=== PATIENT | male | born 1965 | race Caucasian/White ===

== ENCOUNTER 2023-12-02 14:18 | Emergency (ER) | payer OTHER, SELFPAY ==
--- NOTE | ~2023-12-02 | CT_ITS ---
EXAMINATION: CT CERVICAL SPINE WITHOUT CONTRAST CLINICAL INFORMATION: Fall. Pain. Dizziness. COMPARISON: None available. TECHNIQUE: Multidetector helical imaging of the cervical spine was obtained without intravenous contrast. Multiple axial reformats and coronal/sagittal reconstructions were created the technologist workstation for review. This CT examination was performed using dose optimization techniques as appropriate, variously including the following: *Automated exposure control. *Adjustment of mA and/or kV according to patient size (this includes techniques or standardized protocols for targeted exams where dose is matched to indication/reason for exam; i.e. extremities or head). *Use of iterative reconstruction technique. DLP: 611 mGy-cm FINDINGS: The atlantooccipital and atlantoaxial articulations remain well aligned. Straightening of the normal cervical lordosis. Otherwise, there is anatomic alignment of the vertebral bodies and posterior elements. No evidence of acute fracture or subluxation. The vertebral body heights are maintained. Moderate degenerative disc disease from C4-C7. Mild degenerative disc disease at all additional levels. Congenitally shortened pedicles throughout the cervical spine. There is no prevertebral soft tissue swelling. The thyroid gland and remaining cervical soft tissues are within normal limits. The lung apices demonstrate no abnormalities. SPINAL LEVELS: C2-C3: Normal annular contour. There is no uncovertebral joint arthropathy. There is mild bilateral facet joint arthropathy. There is no neural foraminal stenosis. There is no demonstrated spinal canal stenosis. C3-C4: Moderate disc-osteophyte complex. There is moderate left and mild right uncovertebral joint arthropathy. There is mild bilateral facet joint arthropathy. There is moderate left and mild right neural foraminal stenosis. There appears to mild spinal canal stenosis. C4-C5: Moderate disc-osteophyte complex. There is moderate bilateral uncovertebral joint arthropathy. There is mild bilateral facet joint arthropathy. There is moderate left and mild right neural foraminal stenosis. There appears to moderate to severe spinal canal stenosis. C5-C6: Moderate disc-osteophyte complex. There is severe right and moderate left uncovertebral joint arthropathy. There is moderate right and mild left facet joint arthropathy. There is severe right and moderate left neural foraminal stenosis. There is there appears to moderate spinal canal stenosis. C6-C7: Moderate to severe disc-osteophyte complex. There is severe bilateral uncovertebral joint arthropathy. There is severe right and moderate left facet joint arthropathy. There is severe bilateral neural foraminal stenosis. There appears to be moderate to severe spinal canal stenosis. C7-T1: Mild disc-osteophyte complex. There is mild right and no left uncovertebral joint arthropathy. There is moderate left and mild right facet joint arthropathy. There is mild bilateral neural foraminal stenosis. There is no demonstrated spinal canal stenosis. CT/CT cervical spine wo IV con IMPRESSION: 1. No evidence of acute fracture or traumatic subluxation of the cervical spine. 2. Moderate multilevel degenerative spondyloarthropathy of the cervical spine as described in detail above. Congenital shortened pedicles throughout the cervical spine. On this limited exam without intrathecal contrast, there appears to be moderate to severe spinal canal stenoses from C4-C7. Moderate to severe neural foraminal stenoses from C3-C7.
--- NOTE | ~2023-12-02 | CT_ITS ---
EXAMINATION: CT head/brain wo IV con CLINICAL INFORMATION: Reason for Exam fall, pain, dizziness COMPARISON: None. TECHNIQUE: Contiguous axial imaging was performed from the skull base to vertex without intravenous contrast. Sagittal and coronal reformatted images were obtained. This CT examination was performed using dose optimization techniques as appropriate, variously including the following: * Automated exposure control * Adjustment of mA and/or kV according to patient size (this includes techniques or standardized protocols for targeted exams where dose is matched to indication/reason for exam; i.e. extremities or head) Use of iterative reconstruction technique DLP: 1442.28 mGy-cm FINDINGS: There is acute subarachnoid hemorrhage in the left cerebral convexity most pronounced in the left perisylvian region and possible trace subarachnoid blood products in the right sylvian fissure. The ventricles and sulci are normal in size and configuration without significant volume loss or hydrocephalus. Minimal hypodensity about the bilateral frontal horns may reflect chronic microangiopathic changes. No territorial loss of clarke-white differentiation. No mass lesion, significant mass effect, or herniation pattern. Mild calcific plaque along the carotid siphons. The orbits are grossly normal. Polypoid mucosal thickening in the right maxillary sinus. No mastoid effusion. Angulated deformity of the nasal bones without overlying soft tissue swelling, presumably chronic fracture deformities. CT/CT head/brain wo IV con IMPRESSION: 1. Acute subarachnoid hemorrhage in the left cerebral convexity most pronounced in the left perisylvian region and possible trace subarachnoid blood products in the right sylvian fissure. No mass effect or herniation pattern. Critical result was discussed with Cindi Gonzalez MD at 3:57 PM on 12/02/2023 and it was ascertained that the content and urgency of the report was understood at the time of direct communication. 2. Angulated deformity of the nasal bones without overlying soft tissue swelling, presumably chronic fracture deformities.
--- NOTE | 2023-12-02 14:22 | ED.GENADULT ---
HPI - General Adult General Stated complaint: FALL, CONCUSSION LIKE SYMTOMS Time Seen by Provider: 12/02/23 14:21 Source: patient and EMS Mode of arrival: EMS Limitations: no limitations
[2023-12-02 14:40] VITALS: BP 157/92; BP 172/122; PULSE 75; PULSE 80; RESP 16; TEMP 36.6; O2SAT 95; BMI 34.4
--- NOTE | 2023-12-02 14:49 | ED_ITS ---
HPI - General Adult General Chief complaint: Fall Stated complaint: FALL, CONCUSSION LIKE SYMTOMS Time Seen by Provider: 12/02/23 14:21 Source: patient Mode of arrival: ambulatory Limitations: no limitations History of Present Illness HPI narrative: Patient comes to the emergency room complaining of a headache. Patient states that for the cell he fell down a flight of stairs and since then he has been having headache. Patient states that he went to [facility]. States that a rib x- ray was done and it was negative and then discharge. Patient has been at [place] on a [address]. Patient denies neck pain. Patient denies nausea or vomiting. Related Data Home Medications Medication Instructions Recorded Confirmed acetaminophen 325 mg tablet 650 mg PO Q6H PRN Mild Pain (Scale 12/02/23 12/02/23 Score 1-4) clonidine HCl 0.1 mg tablet 0.1 mg PO BID PRN Hypertension 12/02/23 12/02/23 cyclobenzaprine 5 mg tablet 5 mg PO TID PRN Pain, Moderate 12/02/23 12/02/23 fluticasone furoate 100 1 inh inhalation DAILY 12/02/23 12/02/23 mcg-vilanterol 25 mcg/dose inhalation powder (Breo Ellipta) hydroxyzine HCl 50 mg tablet 50 mg PO QID PRN Anxiety 12/02/23 12/02/23 ibuprofen 600 mg tablet 600 mg PO Q6H PRN Severe Pain 12/02/23 12/02/23 (Scale Score 7-10) lorazepam 0.5 mg tablet 0.5 mg PO BID PRN Anxiety 12/02/23 12/02/23 melatonin 3 mg tablet 6 mg PO BEDTIME 12/02/23 12/02/23 quetiapine 100 mg tablet 100 mg PO BEDTIME PRN Insomnia 12/02/23 12/02/23 sumatriptan succinate 50 mg tablet 50 mg PO BID PRN Migraine Headache 12/02/23 12/02/23 Allergies Allergy/AdvReac Type Severity Reaction Status Date / Time codeine Allergy Rash Verified 12/02/23 14:36 latex Allergy Rash Verified 12/02/23 14:35 Penicillins [PCN] Allergy Rash Verified 12/02/23 14:36 Review of Systems 2 Review of Systems: Constitutional : No Weight loss, No Fever, No Chills, No Night Sweats, No Fatigue, No Malaise ENT/Mouth : No Hearing loss, No Ear Pain, No Nasal Congestion, No Sinus Pain, No Hoarseness, No sore throat, No Rhinorrhea, No Swallowing Difficulty Eyes: No Eye Pain, No Swelling, No Redness, No Foreign Body, No Discharge, No Vision Changes Cardiovascular : No Chest Pain, No SOB, No Dyspnea on Exertion, No Orthopnea, No Edema, No Palpitations Respiratory : No Cough, No Sputum, No Wheezing, No Smoke Exposure, No Dyspnea Gastrointestinal : No Nausea, No Vomiting, No Diarrhea, No Constipation, No abdominal Pain, No Hematochezia, No Melena Genitourinary : no irregular bleeding, No Dysuria, No Urinary Frequency, No Hematuria, No Urinary Incontinence, No Urgency, No Flank Pain, No Urinary Flow Changes, No Hesitancy Musculoskeletal : Complaining of left-sided rib pain, No joint pain, No Myalgias, No Joint Swelling Skin : No Skin Lesions, No rash Neuro : No Weakness, No Numbness, No Paresthesias, No Loss of Consciousness, No Dizziness, complaining of Headache Psych : No Anxiety/Panic, No Depression, No SI/HI/AH/VH, No Social Issues, Heme/Lymph: No Bruising, No Bleeding,No Lymphadenopathy Endocrine : No Polyuria, No Polydipsia, No Temperature Intolerance PMFSH Past Medical History Medical History Alcohol abuse Social History Social History Advance Directives: No Advance Directives Information Provided: No Physical Exam ED Vital Signs: Vital Signs - 24 hr 12/02/23 14:40 12/02/23 15:37 Temperature 97.9 F 98.8 F Pulse Rate 75 76 Respiratory Rate 16 18 Blood Pressure 157/92 H 163/101 H Pulse Oximetry 95 95 Oxygen Delivery Method Room Air Room Air BMI result Body Mass Index 34.4 Const Other: Appearance: Alert. Oriented X3. No acute distress. Eyes: Pupils equal, round and reactive to light. ENT: Pharynx normal. Neck: Normal inspection. Neck supple. No lymph nodes noted. No crepitus CVS: Normal heart rate and rhythm. Pulses normal. Normal S1 and S2 Respiratory: No respiratory distress. Breath sounds normal. No Wheezing. No rales Abdomen: Soft and nontender. No rigidity. No distention. Skin: Skin warm and dry. Normal skin color. Normal skin turgor. Extremities: No lower extremity edema. No Lacerations. No Rash Neuro: Oriented X 3. No motor deficit. No sensory deficit. Moving all extremities. No slurred speech. CN 2 through 12 grossly intact Psych: calm, cooperative, normal affect Medical Decision Making Medical Decision Making [facility] Narrative: -my interpretation of head CT: Subarachnoid hemorrhage. -GCS 15, no neurological deficits, patient complaining of an ongoing headache for about 4 days since he fell down the stairs -I discussed the radiology report with Dr. Ayala from [facility]'s trauma team, we will transfer the patient ED to ED for a trauma team consult. -I discussed the plan with the patient, patient agreeable. Differential Diagnosis Differential Diagnoses: The differential diagnosis associated with the presentation includes (Subarachnoid hemorrhage, subdural hematoma, concussion, contusion) Admission/Observation Consideration of admission/observation: Escalation of care including admission/observation considered Consult Healthcare Provider Management of the patient was discussed with: Administrative Manager Lab Data MDM Lab Attestation statement: I reviewed the patient's lab results. 12/02/23 15:32 12/02/23 15:32 Labs: Lab Results 12/02/23 12/02/23 Range/Units 15:32 15:37 WBC 8.8 (4.8-10.8) X10*3/uL RBC 4.51 L (4.60-5.80) X10*6/uL Hgb 14.0 (14.0-18.0) g/dl Hct 41.1 L (42.0-52.0) % MCV 91.1 (80.0-98.0) fL MCH 31.0 (27.0-33.0) pg MCHC 34.1 (31.0-36.0) g/dl RDW 13.1 (11.0-16.0) % Plt Count 172 (160-400) X10*3/uL MPV 10.6 (9.4-12.4) fL Immature Gran % (Auto) 0.2 (0.0-0.4) % Neut % (Auto) 80.3 H (45-73) % Lymph % (Auto) 13.9 L (20-40) % [place] % (Auto) 4.0 (2-11) % Eos % (Auto) 1.4 (0-4) % Baso % (Auto) 0.2 (0-2) % Lymph # (Auto) 1.2 (1.2-4.9) X10*3/uL [place] # (Auto) 0.4 (0.1-1.2) X10*3/uL Eos # (Auto) 0.1 (0.0-0.4) X10*3/uL Baso # (Auto) 0.0 (0.0-0.2) X10*3/uL Abs Immat Gran (auto) 0.02 (0.00-0.03) X10*3/uL Absolute Neuts (auto) 7.1 (2.0-8.3) x10*3/uL Absolute Nucleated RBC 0.000 (0.0-0.012) X10*3/uL Nucleated RBC % (auto) 0.0 (0.0-0.2) /100WBC PT 11.6 (11.1-13.3) SEC INR 1.0 (0.9-1.1) Sodium 140 (135-145) mmol/L Potassium 3.8 (3.3-5.1) mmol/L Chloride 105 (96-108) mmol/L Carbon Dioxide 27 (22-29) mmol/L Anion Gap 12 (12-20) BUN 16 (9-16) mg/dL Creatinine 0.78 (0.5-1.4) mg/dL Estim Creat Clear Calc 108.7 Estimated GFR > 60 Random Glucose 104 (60-115) mg/dL Calcium 9.5 (8.4-10.2) mg/dL Total Bilirubin 0.8 (0.0-1.0) mg/dL Direct Bilirubin 0.3 (0.0-0.5) mg/dL AST 22 (5-37) U/L ALT 17 (0-40) U/L Alkaline Phosphatase 104 (39-117) U/L Total Protein 7.1 (6.5-8.0) g/dL Albumin 3.9 (3.5-5.0) g/dL Urine Opiates Screen Not Detected (Not Detect) Urine Fentanyl Screen Not Detected (Not Detect) Ur Barbiturates Screen Not Detected (Not Detect) Ur Phencyclidine Scrn Not Detected (Not Detect) Ur Amphetamines Screen Not Detected (Not Detect) U Benzodiazepines Scrn Not Detected (Not Detect) Urine Cocaine Screen Not Detected (Not Detect) U Marijuana (THC) Screen Not Detected (Not Detect) Ethyl Alcohol < 10 mg/dL Independent Interpretation I performed an independent interpretation of an: CT Scan Radiology Impression Discussion of test interpretation with radiology: I discussed test interpretation with the radiologist and I have reviewed the radiologist's reading. Radiologist Impression: INDINGS: There is low lung volume bilaterally with right lower lobe airspace disease most likely atelectasis but pneumonia couldn't be excluded. Cardiomediastinal silhouette is unremarkable. 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 XR/XR chest 1V IMPRESSION: Low lung volume with left lung atelectasis. Critical Care Time Critical Care Time Critical Care Time: Yes Total Critical Care Time: 60 Attestation: I have personally provided critical care time. Time includes review of lab data, radiology results, discussion with consultants, and monitoring for potential decompensation. Intervention performed as documented. Discharge Plan Discharge Clinical Impression: Subarachnoid hemorrhage Patient Disposition: [facility] Transfer Details: [facility] ED to ED for trauma consult Prescriptions: No Action clonidine HCl 0.1 mg Tablet 0.1 mg PO BID PRN (Reason: Hypertension) acetaminophen 325 mg Tablet 650 mg PO Q6H PRN (Reason: Mild Pain (Scale Score 1-4)) sumatriptan succinate 50 mg Tablet 50 mg PO BID PRN (Reason: Migraine Headache) Rx Instructions: do not exceed 4 doses per 24 hrs hydroxyzine HCl 50 mg Tablet 50 mg PO QID PRN (Reason: Anxiety) melatonin 3 mg Tablet 6 mg PO BEDTIME quetiapine 100 mg Tablet 100 mg PO BEDTIME PRN (Reason: Insomnia) lorazepam 0.5 mg Tablet 0.5 mg PO BID PRN (Reason: Anxiety) ibuprofen 600 mg Tablet 600 mg PO Q6H PRN (Reason: Severe Pain (Scale Score 7-10)) cyclobenzaprine 5 mg Tablet 5 mg PO TID PRN (Reason: Pain, Moderate) fluticasone furoate-vilanterol [Breo Ellipta] 100-25 mcg/dose Blister With Device 1 inh INHALATION DAILY
--- NOTE | 2023-12-02 15:24 | PHA.MEDREC ---
Pharmacy Consult ? Medication Reconciliation Pharmacy has completed the medication reconciliation. Patient from [place], utilized medication list from facility. Abbie SandersD
[2023-12-02 15:37] VITALS: BP 163/101; PULSE 76; RESP 18; TEMP 37.1; O2SAT 95
[2023-12-02 15:51] LABS: Amphetamine Screen Urine Not Detected (Not Detect); Barbiturates, Urine Not Detected (Not Detect); Benzodiazepines Screen Urine Not Detected (Not Detect); Cannabinoid Screen Urine Not Detected (Not Detect); Cocaine Screen Urine Not Detected (Not Detect); Fentanyl, urine Not Detected (Not Detect); Opiate Screen Urine Not Detected (Not Detect); Phencyclidine Screen Urine Not Detected (Not Detect)
[2023-12-02 15:52] LABS: MANUAL DIFF FLAG NO
[2023-12-02 15:53] LABS: Basophils Percent Auto 0.2 % (0-2); Eosinophils Absolute Auto 0.1 X10*3/uL (0.0-0.4); Eosinophils Percent Auto 1.4 % (0-4); Hematocrit 41.1 % (42.0-52.0); Imm Gran Abs Auto 0.02 X10*3/uL (0.00-0.03); Imm Gran Pct Auto 0.2 % (0.0-0.4); Lymphocytes Absolute Auto 1.2 X10*3/uL (1.2-4.9); Lymphocytes Percent Auto 13.9 % (20-40); Mean Corpuscular HGB Conc 34.1 g/dl (31.0-36.0); Mean Corpuscular Volume 91.1 fL (80.0-98.0); Mean Platelet Volume 10.6 fL (9.4-12.4); Monocytes Absolute Auto 0.4 X10*3/uL (0.1-1.2); Neutrophils Absolute Auto 7.1 x10*3/uL (2.0-8.3); Neutrophils Percent Auto 80.3 % (45-73); Platelet Count 172 X10*3/uL (160-400); Red Blood Count 4.51 X10*6/uL (4.60-5.80); Red Cell Distribution Width 13.1 % (11.0-16.0); White Blood Count 8.8 X10*3/uL (4.8-10.8)
[2023-12-02 16:05] LABS: Prothrombin Time 11.6 SEC (11.1-13.3)
[2023-12-02 16:07] LABS: Ethanol < 10 mg/dL
[2023-12-02 16:10] LABS: Alanine Aminotransferase 17 U/L (0-40); Albumin Level 3.9 g/dL (3.5-5.0); Alkaline Phosphatase 104 U/L (39-117); Anion Gap 12 (12-20); Aspartate Amino Transferase 22 U/L (5-37); Bilirubin Direct 0.3 mg/dL (0.0-0.5); Bilirubin Total 0.8 mg/dL (0.0-1.0); Blood Urea Nitrogen 16 mg/dL (9-16); Calcium 9.5 mg/dL (8.4-10.2); Carbon Dioxide 27 mmol/L (22-29); Chloride 105 mmol/L (96-108); Creatinine Clr Calc Pharmacy 108.7; Estimated Glomerular Filt Rate > 60; Glucose Random 104 mg/dL (60-115); Potassium 3.8 mmol/L (3.3-5.1); Sodium 140 mmol/L (135-145); Total Protein 7.1 g/dL (6.5-8.0)
[2023-12-02 17:38] VITALS: BP 180/99; PULSE 71; RESP 16; TEMP 36.6; O2SAT 96
== END 2023-12-02 17:40 | disposition short-term general hospital (02) ==
PROVIDERS: Emergency Provider Emergency Medicine
DX: S06.6XAA Traumatic subarachnoid hemorrhage with loss of consciousness status unknown, initial encounter (principal); W10.9XXA Fall (on) (from) unspecified stairs and steps, initial encounter; Y93.9 Activity, unspecified; Y92.9 Unspecified place or not applicable; Y99.9 Unspecified external cause status
CPT/HCPCS: 36415; 70450; 72125; 80048; 80076; 80307; 85025; 85610; 99285